=== PATIENT | male | born 1935 | race Caucasian/White ===

== ENCOUNTER 2017-07-31 09:26 | Outpatient (CLI) | payer MEDICARE ==
[~2017-07-31 09:26] MED LIST: CARB15DR4 OP; COU5T PO; HYDR50TA3 PO; OSTEO BI-FLEX1 EACH PO; OXYB5TAB80 PO; PROP40TA72 PO; VAL5T PO; ZOC40T PO
== END 2017-07-31 23:59 | disposition home or self-care (01) ==
LOC: LAB 09:26
PROVIDERS: ATTEND Family Medicine
DX: M25.512 Pain in left shoulder (principal); I10 Essential (primary) hypertension
CPT/HCPCS: 73020